=== PATIENT | female | born 2005 | race Caucasian/White ===

== ENCOUNTER 2025-01-21 15:06 | Emergency (ER) | payer BC, SELFPAY ==
[2025-01-21 15:22] VITALS: BP 126/80; PULSE 71; RESP 16; TEMP 36.8; O2SAT 100
[2025-01-21 15:29] LABS: EDUAAPPEAR Clear; EDUABILI Negative (Negative); EDUABLOOD 2+ (Negative); EDUACOLOR1 Yellow; EDUAGLUCOSE Negative (Negative); EDUAKETONE Negative (Negative); EDUALEUKO 1+ (Negative); EDUANITRATE Negative (Negative); EDUAPROTEIN Trace (Negative)
--- NOTE | 2025-01-21 15:47 | ED_ITS ---
HPI - Female Genitourinary General Chief complaint: Urogenital-Female Stated complaint: UTI SYMPTOMS Time Seen by Provider: 01/21/25 15:47 Source: patient Mode of arrival: ambulatory Limitations: no limitations History of Present Illness HPI Narrative: 19-year-old female presents with complaint of blood in urine, urinary frequency and dysuria since yesterday. Afebrile. Denies . No history of similar symptoms. All systems reviewed and negative except as noted above. Related Data Allergies Allergy/AdvReac Type Severity Reaction Status Date / Time amoxicillin Allergy Severe hives Verified 01/21/25 15:21 clavulanic acid (From Allergy Severe Hives Verified 01/21/25 15:21 Augmentin) Penicillins Allergy Severe Hives Verified 01/21/25 15:21 Review of Systems Review of Systems: CONSTITUTIONAL: Denies fever, chills, or sweats. EYES: Denies visual changes, redness, or discharge. ENT: Denies rhinorrhea, congestion, sore throat, or otalgia. CARDIOVASCULAR: Denies chest pain, palpitations, or edema. RESPIRATORY: Denies cough or dyspnea. GASTROINTESTINAL: Denies abdominal pain, nausea, vomiting, or diarrhea. GENITOURINARY: Reports dysuria, frequency, hematuria. SKIN: Denies rash or itching. MUSCULOSKELETAL: Denies back pain, joint pain, or myalgia. NEUROLOGIC: Denies headache, numbness, or weakness. PSYCHIATRIC: Denies anxiety or depression. All other systems reviewed are negative, except as documented in HPI. PMFSH Comments At time of signature, agree with nursing past medical, surgical, social and family history. There is no relevant family history pertinent to the presenting complaint. Exam Narrative: GENERAL: This is a well-nourished, well-developed patient, in no apparent distress. HEAD: normocephalic, atraumatic. EYES: PERRL. Sclera clear/white. Vision is grossly intact. EARS: External ears normal NOSE: External nose normal NECK: Neck supple, non-tender without lymphadenopathy, masses or thyromegaly. CARDIOVASCULAR: Regular rate and rhythm without murmurs, gallops, or rubs. RESPIRATORY: Clear to auscultation. Breath sounds equal bilaterally. No wheezes, rales, or rhonchi. SKIN: warm, Dry, intact with no suspicious lesions or rash, good texture and turgor. NEURO: awake, alert, and oriented to person, place and time. There were no obvious focal neurologic abnormalities. EXTREMITIES: No joint tenderness, effusion, or edema noted. Course Course Level of Care: Express Care Visit Vital Signs Vital signs: Vital Signs Temperature 36.8 C 01/21/25 15:22 Pulse Rate 71 01/21/25 15:22 Respiratory Rate 16 01/21/25 15:22 Blood Pressure 126/80 01/21/25 15:22 Pulse Oximetry 100 01/21/25 15:22 Oxygen Delivery Room Air 01/21/25 15:22 Temperature 36.8 C 01/21/25 15:22 Pulse Rate 71 01/21/25 15:22 Respiratory Rate 16 01/21/25 15:22 Blood Pressure 126/80 01/21/25 15:22 Pulse Oximetry 100 01/21/25 15:22 Oxygen Delivery Room Air 01/21/25 15:22 Reviewed MDM - Female Genitourinary MDM Narrative Medical decision making narrative: Urinalysis positive for blood, leukocytes, protein. Will treat patient with Bactrim for urinary tract infection. Urine culture pending. Patient is well- appearing, nontoxic. Please be advised this is a medical document. It is intended for hvfr-gw-vnia communication. It is written in medical language and may contain unfamiliar ab breviations or verbiage. Medical documents are intended to carry relevant information, facts as evident, and the clinical opinion of the practitioner at the time of the encounter. This report may have been done utilizing a voice recognition system. Attempts have been made to correct errors. However, there may be uncorrected grammatical, spelling, and recognition errors present. The file time of this note does not necessarily represent the time of service. Lab Data Labs: Lab Results 01/21/25 Range/Units 15:27 POC Urine Color Yellow POC Urine Clarity Clear POC Urine pH 7.0 POC Ur Specif [place] 1.020 POC Urine Protein Trace (Negative) POC Ur Glucose (UA) Negative (Negative) POC Urine Ketones Negative (Negative) POC Urine Blood 2+ (Negative) POC Urine Nitrite Negative (Negative) POC Urine Bilirubin Negative (Negative) POC Urine Urobilinogen 1.0 POC U Leukocyte Esteras 1+ (Negative) Discharge Plan Discharge Clinical Impression: Urinary tract infection Patient Disposition: Home Condition: Stable Instructions: Antibiotic Form, Urinary Tract Infection in Women (ED) Additional Instructions: Take antibiotic as prescribed until gone. May take neke-acs-rykakat azo as directed on packaging to treat urinary frequency and pain. Drink at least 64 oz water a day. Follow-up with your primary care physician if symptoms are not improving. Patient Language: Ukrainian Prescriptions: New sulfamethoxazole-trimethoprim [Bactrim DS] 800-160 mg tablet 1 tablet PO Q12H 3 Days Qty: 6 0RF Follow-up/Referrals: Andrea,Johnie [Other] Time of Disposition: 15:50
== END 2025-01-21 15:55 | disposition home or self-care (01) ==
PROVIDERS: Emergency Provider Nurse Practitioner Family
DX: N39.0 Urinary tract infection, site not specified (principal)
CPT/HCPCS: 81003; 87086; 99203; G0463